=== PATIENT | male | born 1960 | race African-American/Black ===

== ENCOUNTER 2017-10-18 22:03 | Emergency (ER) | payer BC, OTHER ==
[2017-10-19 02:08] LABS: URINE PH (Dip) POC 6.5 (5.0-8.5)
[2017-10-19 02:08] LABS: URINE BLOOD (Dip) POC Negative (NEGATIVE); URINE GLUCOSE (Dip) POC Negative (NEGATIVE); URINE KETONES (Dip) POC Negative (NEGATIVE); URINE LEUKOCYTE EST (Dip) POC Negative (NEGATIVE); URINE NITRITE (Dip) POC Negative (NEGATIVE); URINE TOTAL PROTEIN POC Negative (NEGATIVE)
== END 2017-10-19 02:44 | disposition home or self-care (01) ==
LOC: FTE 22:03
DX: M54.5 Low back pain (principal); R20.2 Paresthesia of skin; R20.0 Anesthesia of skin; E11.9 Type 2 diabetes mellitus without complications
CPT/HCPCS: 81003; 82962; 99282